=== PATIENT | female | born 2005 | race Caucasian/White ===

== ENCOUNTER 2023-05-06 09:03 | Day surgery (SDC) | payer OTHER ==
[~2023-05-06] VITALS: Ht 175.3 cm; Wt 60.1 kg
[~2023-05-06 09:03] MED LIST: DICY-61 PO; LIDOCAINE 2% 100MG/5ML SDV (FOR ANES.) As Ordered ONE; MEDR150I12 IM NO SITE; NS 1,000 ML IV ONE; propofoL 200 MG/20 ML VIAL As Ordered ONE
[2023-05-06 11:10] VITALS: TEMP 97.2
[2023-05-06 11:28] VITALS: BP 110/56; O2SAT 100
== END 2023-05-06 11:28 | disposition home or self-care (01) ==
LOC: M OPP 09:03
PROVIDERS: ATTEND Internal Medicine Gastroenterology
DX: R93.3 Abnormal findings on diagnostic imaging of other parts of digestive tract (principal); R11.0 Nausea; R10.31 Right lower quadrant pain; Z79.899 Other long term (current) drug therapy; Z80.0 Family history of malignant neoplasm of digestive organs; Z83.6 Family history of other diseases of the respiratory system